=== PATIENT | male | born 1980 | race Caucasian/White ===

== ENCOUNTER 2023-04-29 16:18 | Emergency (ER) | payer OTHER ==
[~2023-04-29] VITALS: Wt 81.6 kg
[~2023-04-29 16:18] MED LIST: ALBUTEROL0.09 MG/A2 IH; AMOXICILLIN500 MG PO; Anusol Hc,Anuco25 MG PO; BACTROBAN2% TP; CIPRO500 MG PO; DARVOCET N 1001 TAB PO; DAYPRO600 M1 PO; DIAZEPAM2 MG PO; DOXYCYCLINE MO100 MG PO; FIORICET 325 MG1 TAB PO; MEDROL DOSEPAK4 MG PO; MOTRIN800 MG PO; NAPROSYN500 MG PO; NKHM; PEN-VEE K500 MG PO; PREDNISONE20 MG PO; ROBAXIN750 MG PO; SUBOXONE 8 MG-21 TA2 SL; SUBOXONE1 FI1 SL; TRAMADOL HCL50 MG PO; VICODIN ES 7501 TAB PO; ZOVIRAX200 MG PO
== END 2023-04-29 17:05 | disposition short-term general hospital (02) ==
LOC: ED 16:18
DX: S68.114A Complete traumatic metacarpophalangeal amputation of right ring finger, initial encounter (principal); S68.112A Complete traumatic metacarpophalangeal amputation of right middle finger, initial encounter; Z98.890 Other specified postprocedural states; W26.8XXA Contact with other sharp object(s), not elsewhere classified, initial encounter; Y93.89 Activity, other specified; Y92.89 Other specified places as the place of occurrence of the external cause; Y99.8 Other external cause status